=== PATIENT | male | born 1985 | race African-American/Black ===

== ENCOUNTER 2021-12-15 19:08 | Emergency (ER) | payer OTHER, SELFPAY ==
[2021-12-15 19:20] VITALS: BP 152/97; PULSE 77; RESP 16; TEMP 36.1; O2SAT 97
--- NOTE | 2021-12-15 19:57 | ED.HA ---
HPI - Headache General Chief Complaint: Headache Stated Complaint: headache Time Seen by Provider: 12/15/21 19:56 Source: patient Mode of arrival: ambulatory Limitations: no limitations History of Present Illness HPI Narrative: The patient is a 36-year-old male with history of migraine headaches presenting to the ER for evaluation of migraine. Patient reports he usually gets headaches once a month. He reports he usually follows with a neurologist at [facility] but is not on any maintenance or abortive medication. Patient reports light sensitivity and headache over the frontal part of his forehead. He denies any neck pain. No thunderclap sensation. He denies nausea, vomiting, chest pain, shortness of breath. He denies unilateral numbness or weakness. He has been ambulatory. Patient states he usually takes Tylenol and then feels improved with Tylenol, however Tylenol did not resolve his symptoms. Pt denies vision changes or eye pain. He denies pain with chewing. He denies fever or neck pain. He denies recent illness or congestion. He denies confusion, dizziness or lightheadedness. Related Data Allergies Allergy/AdvReac Type Severity Reaction Status Date / Time bee venom protein (honey bee) Allergy Swelling Verified 12/15/21 19:24 [bees] shellfish derived Allergy Swelling Verified 12/15/21 19:24 Review of Systems Review of Systems: CONSTITUTIONAL: Denies fever, chills, or sweats. EYES: Denies visual changes, redness, or discharge. ENT: Denies rhinorrhea, congestion, sore throat, or otalgia. CARDIOVASCULAR: Denies chest pain, palpitations, or edema. RESPIRATORY: Denies cough or dyspnea. GASTROINTESTINAL: Denies abdominal pain, nausea, vomiting, or diarrhea. GENITOURINARY: Denies dysuria or hematuria. SKIN: Denies rash or itching. MUSCULOSKELETAL: Denies back pain, joint pain, or myalgia. NEUROLOGIC: Reports headache without focal numbness or weakness [facility] Social History Social History (Updated 12/15/21 @ 20:25 by Aisha Vu MD) Smoking status: Never smoker Alcohol intake: never Substance use: never Living arrangements: alone Gender identity (if verbalized by the patient): Male Exam Narrative: GENERAL: Awake, alert, conversant HEAD: Normocephalic, atraumatic. EYES: PERRLA and EOMI. ENT: Nares clear, no rhinorrhea or epistaxis. Mucous membranes moist. NECK: Supple. CHEST: No respiratory distress, breathing even and non labored HEART: Regular rate, sinus rhythm ABDOMEN:Non distended, non tender EXTREMITIES: Normal range of motion. No edema. SKIN: Warm, dry, no rash. NEURO:No focal deficits. Alert and oriented x3. Finger to nose intact bilaterally. EOMs intact without nystagmus. No facial droop/asymmetry noted bilaterally. Grimace intact. Intact sensation in face. Hearing intact bilaterally. Shoulder shrug intact. Strength 5/5 bilateral upper extremities. Strength 5/5 bilateral lower extremities. Reflexes 2+ patellar. Heel to srinivasan intact bilaterally. Ambulatory with a narrow based, steady gait without ataxia. Course Vital Signs Vital signs: Vital Signs Temperature 36.1 C L 12/15/21 19:20 Pulse Rate 77 12/15/21 19:20 Respiratory Rate 16 12/15/21 19:20 Blood Pressure 152/97 H 12/15/21 19:20 Pulse Oximetry 97 12/15/21 19:20 Temperature 36.3 C L 12/15/21 21:43 Pulse Rate 74 12/15/21 21:43 Respiratory Rate 18 12/15/21 21:43 Blood Pressure 142/88 H 12/15/21 21:43 Pulse Oximetry 100 12/15/21 21:43 MDM - Headache MDM Narrative Medical decision making narrative: The patient was evaluated in the emergency department for headache. Patient's headache pain was not sudden or maximal in onset. There are no focal deficits on exam. Subarachnoid hemorrhage is felt to be unlikely given the clinical symptoms and exam findings. There is no history of fever and neck is supple to evaluation without meningismus. Meningitis is felt to be unlikely. No traumatic history or signs of trauma on
[2021-12-15] MEDS: METOCLOPRAMIDE HCL INJ 10 MG/2 ML VIAL IV PUSH (20:53)
[2021-12-15] MEDS: diphenhydrAMINE HCl INJ 50 MG/ML VIAL 25 MG IV PUSH (20:53)
[2021-12-15] MEDS: SODIUM CHLORIDE 0.9% IV 1,000 ML 999 ML IV CONT (20:54)
[2021-12-15 20:56] LABS: Basophils Percent Auto 0.9 % (0.2-1.2); Eosinophils Absolute Auto 0.1 K/mm3 (0-0.3); Hematocrit 47.6 % (42.0-52.0); Hemoglobin 15.9 g/dL (14.0-18.0); Lymphocytes Absolute Auto 0.91 K/mm3 (0.9-3.2); Lymphocytes Percent Auto 20.4 % (18.3-44.2); Mean Corpuscular HGB Conc 33.4 g/dl (32-36); Mean Corpuscular Hemoglobin 29.5 pg (26-34); Mean Corpuscular Volume 88.3 fl (80-100); Mean Platelet Volume 9.5 fl (7.4-10.4); Monocytes Absolute Auto 0.4 K/mm3 (0.1-0.6); Monocytes Percent Auto 9.2 % (2.6-8.5); Neutrophils Percent Auto 67.5 % (45.5-73.1); Platelet Count Result 199 k/mm3 (150-375); Red Blood Count 5.39 M/mm3 (4.6-6.20); Red Cell Distribution Width 13.8 % (11.5-14.5); White Blood Count 4.5 K/mm3 (4.5-10.0)
[2021-12-15] MEDS: KETOROLAC 15 MG/ML VIAL (*BKC) IV PUSH (20:57)
[2021-12-15 21:13] LABS: Anion Gap 4 mmol/L (8-16); Blood Urea Nitrogen 14 mg/dL (9-20); Calcium 8.6 mg/dL (8.4-10.2); Carbon Dioxide 28 mmol/L (22-30); Chloride 102 mmol/L (98-107); Estimated CRCL calculation 101 ml/min; Estimated Glomerular Filt Rate > 60; Glucose 135 mg/dL (65-110); Sodium 134 mmol/L (137-145)
[2021-12-15 21:43] VITALS: BP 142/88; PULSE 74; RESP 18; TEMP 36.3; O2SAT 100
[2021-12-15 22:01] VITALS: TEMP 37
== END 2021-12-15 22:03 | disposition home or self-care (01) ==
PROVIDERS: Emergency Provider Emergency Medicine
DX: G43.909 Migraine, unspecified, not intractable, without status migrainosus (principal)
CPT/HCPCS: 36415; 80048; 85025; 96361; 96365; 96375; 99284; J0131; J1100; J1200; J1885; J2765; J7030

== ENCOUNTER 2022-02-10 05:31 | Emergency (ER) | payer OTHER, SELFPAY ==
[2022-02-10 05:38] VITALS: BP 145/92; PULSE 75; RESP 18; TEMP 36.8; O2SAT 100
[2022-02-10 06:26] LABS: Appearance Urine Clear (Clear); Bilirubin Urine Negative (Negative); Blood Urine Negative (Negative); Color Urine Yellow (Yellow); Glucose Urine UA Negative (Negative); Ketones Urine Negative (Negative); Leukocyte Esterase Ur Negative LEU/UL (Negative); Nitrate Urine Negative (Negative); Protein Urine Negative (Negative); Specific Grav Ur >= 1.030 (1.001-1.035)
[2022-02-10 06:58] LABS: Add Urine Microscopic? NO
--- NOTE | 2022-02-10 06:58 | ED.GENADULT ---
HPI - General Adult General Chief complaint: Urogenital-Male Stated complaint: nausea, bilat testicle pain Time Seen by Provider: 02/10/22 05:38 History of Present Illness HPI narrative: 37-year-old male presents emergency room with some nonspecific complaints of pain into the groin region. He is had this before. He states he went to a clinic a while back and given 3 pills sound like an antibiotic and it cleared up. Denies any urethral discharge. Sexually active with only one partner. Appetite has been good. He had no specific abdominal pain he states he does not feel right all over . Said no vomiting but did have some diarrhea last night. He works in the [employer] [place] for [employer]. He states he feels like he is drinking plenty of fluids when he is working. Related Data Allergies Allergy/AdvReac Type Severity Reaction Status Date / Time bee venom protein (honey bee) Allergy Swelling Verified 12/15/21 19:24 [bees] shellfish derived Allergy Swelling Verified 12/15/21 19:24 Review of Systems Review of Systems: CONSTITUTIONAL: Denies fever, chills, or sweats. EYES: Denies visual changes, redness, or discharge. ENT: Denies rhinorrhea, congestion, sore throat, or otalgia. CARDIOVASCULAR: Denies chest pain, palpitations, or edema. RESPIRATORY: Denies cough or dyspnea. GASTROINTESTINAL: Denies abdominal pain, nausea, vomiting. Did have some diarrhea GENITOURINARY: Denies dysuria or hematuria. SKIN: Denies rash or itching. MUSCULOSKELETAL: Denies back pain, joint pain, or myalgia. NEUROLOGIC: Denies headache, numbness, or weakness. PSYCHIATRIC: Denies anxiety or depression. PMFSH Past Medical History Medical History Hypertension Social History Social History Smoking status: Never smoker Alcohol intake: never Substance use: never Gender identity (if verbalized by the patient): Male Exam Narrative: APPEARANCE: Well appearing, no pain or distress, well-nourished. Head normocephalic and atraumatic. EYES: PERRLA/EOMI, conjunctivae very clear. NOSE: Normal with no drainage EARS:TMS clear Norbert Nice, with good light reflex. THROAT: Pharynx clear, no exudate. NECK: Supple. No adenopathy, no masses. RESPIRATORY: Airway patent, respirations nonlabored. Clear to auscultation bilaterally, no rales, rhonchi, wheezing. CARDIOVASCULAR: Regular rate and rhythm without murmurs, rubs, or gallops. ABDOMINAL: Soft, nontender, nondistended, no hepatosplenomegaly Musculoskeletal: Moves all extremities. Strength/ROM intact, No edema, No calf tenderness. NEURO: Alert. Cranial nerves II through XII intact. Normal gait. Good coordination. Nonfocal examination. SKIN:: Warm, dry. Normal Color PSYCHIATRIC: Normal affect/mood, normal interaction Course Course Emergency Course: Urinalysis shows increase in specific gravity but no signs of infection. His CPK is noted to be elevated into the 900s. 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 Told him he needs to increase his fluids. CPK is noted to be elevated to the 900s. This could be the cause of some of his muscular type pain. We will give him referral to a local doctor. Meantime return to drink more flui
[2022-02-10 07:05] LABS: Basophils Percent Auto 0.3 % (0.2-1.2); Eosinophils Absolute Auto 0.1 K/mm3 (0-0.3); Eosinophils Percent Auto 1.7 % (0-4.4); Hematocrit 46.8 % (42.0-52.0); Hemoglobin 15.9 g/dL (14.0-18.0); Immature Granulocyte Absolute 0.01 K/mm3 (0.00-0.031); Immature Granulocyte Percent A 0.3 % (0-0.5); Lymphocytes Absolute Auto 0.74 K/mm3 (0.9-3.2); Lymphocytes Percent Auto 21.3 % (18.3-44.2); Mean Corpuscular Hemoglobin 29.6 pg (26-34); Monocytes Absolute Auto 0.4 K/mm3 (0.1-0.6); Neutrophils Absolute Auto 2.3 K/mm3 (1.3-6.7); Neutrophils Percent Auto 65.4 % (45.5-73.1); Platelet Count Result 200 k/mm3 (150-375); Red Blood Count 5.38 M/mm3 (4.6-6.20); Red Cell Distribution Width 13.3 % (11.5-14.5); White Blood Count 3.5 K/mm3 (4.5-10.0)
[2022-02-10 07:18] LABS: Alanine Aminotransferase 34 U/L (6-50); Albumin Level 4.1 g/dL (3.5-5.1); Alkaline Phosphatase 52 U/L (38-126); Anion Gap 5 mmol/L (8-16); Aspartate Amino Transferase 40 U/L (17-59); Blood Urea Nitrogen 11 mg/dL (9-20); Calcium 8.7 mg/dL (8.4-10.2); Carbon Dioxide 29 mmol/L (22-30); Chloride 104 mmol/L (98-107); Creatine Kinase 919 U/L (55-170); Estimated CRCL calculation 90 ml/min; Estimated Glomerular Filt Rate > 60; Glucose 83 mg/dL (65-110); Lipase 48 U/L (23-300); Potassium 3.7 mmol/L (3.4-5.0); Sodium 138 mmol/L (137-145)
== END 2022-02-10 08:35 | disposition home or self-care (01) ==
PROVIDERS: Emergency Medicine; Emergency Provider Emergency Medicine
DX: R79.82 Elevated C-reactive protein (CRP) (principal); E86.0 Dehydration; I10 Essential (primary) hypertension
CPT/HCPCS: 36415; 80053; 81003; 82550; 83690; 85025; 99283

== ENCOUNTER 2022-03-26 09:50 | Emergency (ER) | payer OTHER, SELFPAY ==
[2022-03-26 10:00] VITALS: BP 181/109; PULSE 92; RESP 18; TEMP 36.1; O2SAT 98
[2022-03-26] MEDS: KETOROLAC (*BKC) 60 MG/2 ML VIAL IM (11:01)
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
[2022-03-26 13:17] VITALS: BP 139/84; PULSE 84; RESP 16; O2SAT 98
== END 2022-03-26 13:20 | disposition home or self-care (01) ==
PROVIDERS: Emergency Provider Emergency Medicine
DX: S16.1XXD Strain of muscle, fascia and tendon at neck level, subsequent encounter (principal); I10 Essential (primary) hypertension; V49.40XD Driver injured in collision with unspecified motor vehicles in traffic accident, subsequent encounter
CPT/HCPCS: 99283; J1885